=== PATIENT | female | born 1955 | race Caucasian/White ===

== ENCOUNTER 2016-12-24 18:05 | Inpatient (IN) | payer MEDICARE, OTHER ==
[~2016-12-24] VITALS: Ht 171.4 cm; Wt 107.5 kg
[~2016-12-24 18:05] MED LIST: ACET325T51 PO; ALBU8.5H2 INHALATION; ASPI81TA3 PO; CALC500T9 PO; DIPH25CA6 PO; FRSM80T PO; GABA-502 PO; INS7030U SUBQ; MUPI22OI2 NASAL; OMEG500C PO; ONDA-53 PO; SENN-133 PO; TRAZ-118 PO; VANC750P5 IV
--- NOTE | 2016-12-24 18:16 | ED.REPORT ---
HPI-General Illness Date of Service Dec 24, 2016 ED Provider: Arsenio Beach MD 61 year old morbidly obese female with a history of asthma, CHF, diabetes, and ESRD on dialysis, presents to the ER via EMS with two days of acute on chronic shortness of breath, and generalized weakness. Associated symptoms include worsening cough, diaphoresis, chills, and decreased fluid intake. She states that coughing elicits chest pain. Patient denies fever, nausea, vomiting, diarrhea, lower extremity swelling, and recent Prednisone or antibiotic use. She has missed her two most recent dialysis treatments. Her seasonal influenza vaccination is up to date. Nursing Notes Stated Complaint: SOB Nursing Notes Reviewed: Yes ([employer], meds not reconciled) Allergies: Coded Allergies: tramadol (Verified Allergy, Intermediate, Dizziness, falls, 11/02/16) Sulfa (Sulfonamide Antibiotics) (Verified Allergy, Unknown, UNKNOWN, 11/02) morphine (Verified Adverse Reaction, Severe, N/V-tolerates hydromorphone w /o same effect, 11/02/16) Uncoded Allergies: Vitamins (Allergy, Severe, N/V, 05/16/13) Scheduled Aspirin Chew (Aspirin Chew) 81 Mg Chew 81 MG PO DAILY Calcium Carbonate (Tums) 500 Mg Tab.chew 2,000 MG PO DAILYWD Citalopram (Citalopram) 10 Mg Tablet 10 MG PO HS Furosemide (Furosemide) 80 Mg Tab 80 MG PO DAILY Insul NPH Hu Rec/Ins Rg Hu Rec (Novolin 70/30 U100 Insulin Vial) 100 U/1 Ml U 50 UNITS SUBQ BID Levothyroxine (Levothyroxine) 100 Mcg Tablet 100 MCG PO DAILY [place]-3/Dha/Epa/Fish Oil (Fish Oil 1,000 mg Softgel) 1 Each Capsule 2 EACH PO DAILY Trazodone (Trazodone) 100 Mg Tablet 100 MG PO HS Scheduled PRN Acetaminophen (Acetaminophen) 325 Mg Tablet 650 MG PO Q4H PRN PRN For Pain Albuterol HFA (Proair HFA) 8.5 Gm Hfa.aer.ad 2 PUFFS INHALATION Q4H PRN PRN For Shortness of Breath Clobetasol Propionate (Clobetasol Propionate) 118 Ml Shampoo 1 APPLIC TP DAILY PRN PRN scalp Desonide (Desonide Cream) 15 Gm Cream..g. 1 APPLIC TOP BID PRN PRN psoriasis Nystatin (Nystatin) 20 Applic/15 Gm Oint 1 APPLIC TOPICAL BID PRN PRN rash Ondansetron (Ondansetron) 4 Mg Tablet 4 MG PO q6 PRN PRN For Nausea Sennosides (Senna) 8.6 Mg Tablet 8.6 MG PO DAILY PRN PRN For Constipation oxyCODONE-Acetaminophen 7.5-325 mg (oxyCODONE-Acetaminophen 7.5-325 mg) 1 Each Tablet 1 TAB PO BID PRN PRN For Pain General Time Seen by MD: 18:13 Chief Complaint Weakness, Other (Shortness of Breath) Hx Obtained From: Patient Arrived By: Ambulance Sudden in Onset?: No Onset Occurred: 2 days ago Symptom Duration: Constant Associated with: Reports: Cough, Diaphoresis, Denies: Fever, Nausea, Vomiting Pertinent Negative: Pt denies other symptoms Context Related History: Reports Asthma, Reports Diabetes mellitus Past Medical History Past Medical History Notes: Contaminated [place] Consultant: Dr. Denton Admit July 2016 for hemodialysis Past Medical History Arthritis MRSA abscesses bronchitis ESRD , on hemodialysis. Chronic pain with narcotic dependence Hypothyroidism Diabetic nephropathy, and diabetic retinopathy Dyslipidemia diastolic congestive heart failure Reports: Asthma, Diabetes mellitus Reports: Depression, Morbid Obesity, Renal failure Past Surgical History loop recorder placed in left chest right oophorectomy Reports: Appendectomy, Cholecystectomy, Hysterectomy Smoking History Former Smoker Social History Alcohol Use: Denies alcohol use Drug Use: Denies drug use Other Social History: Good social support, Lives with children, Local resident Ambulatory Status Walker Review of Systems Full Review of Systems Constitutional: Reports: Chills, Weakness - generalized, Denies: Fever Respiratory: Reports: Dyspnea on exertion, Non-productive cough, Shortness of breath Cardiovascular: Reports: Chest pain (with coughing) GI: Denies: Abdominal pain, Diarrhea, Nausea, Vomiting Musculoskeletal: Denies: Extremity pain, Extremity swelling Skin: Reports Diaphoresis Complete sys rev & neg: except as marked. Physical Exam Vital Signs Vital Signs Date Time Temp Pulse Resp B/P Pulse Ox O2 Delivery O2 Flow Rate FiO2 12/24/16 21:15 91 22 119/60 92 Nasal Cannula 4 12/24/16 19:55 83 18 142/45 99 12/24/16 18:19 37.9 81 19 130/52 95 Nasal Cannula 3 Initial VS: Reviewed, Vital signs abnormal (O2 Sat 70% for Urgent Care, borderline temperature-but not actually febrile) Head / Eyes: Atraumatic, Normocephalic Neck: Supple, Non-tender, Full range of motion Abdomen / GI: Soft, Non-tender, No guarding, No rebound, No distention Extremities: Vascular intact, Neuro intact, No swelling, No tenderness Skin: Warm, Dry, No cyanosis Neurologic: Alert, Oriented, Nonfocal General/Constitutional: Awake, Alert, No acute distress, Well developed, Well nourished Appearance / Presentation: Positive: Obese Respiratory / Chest: No chest tenderness, No chest wall deformity Wheezing / Retractions: Positive: Wheeze insp/exp diffuse Hacking cough. Profoundly bronchospastic. Cardiovascular: Cap refill not delayed, Peripheral circulation NL Heart tones inaudible. Lower Extremity / Pelvis / MS: Full range of motion, Neurologic intact, Vascular intact Legs are tense, bilaterally. No pitting edema, anasarca or signs of volume overload despite recent missed dialysis appointments. Interpretation & Diagnostics Lab Results Interpretation Result Diagram: 12/24/16193912/24/161939 Test 12/24/16 19:40 White Blood Count 3.4th/mm3 (3.8-10.1) Red Blood Count 2.91mil/mm3 (3.90-5.20) Hemoglobin 8.6g/dL (12.0-15.6) Hematocrit 29.8% (35.0-46.0) Mean Corpuscular Volume 102.4fL (81-100) Mean Corpuscular Hemoglobin 29.6pg (27.0-35.0) Mean Corpuscular Hemoglobin Concent 28.9% (32.0-37.0) Red Cell Distribution Width 16.7% (12.3-15.4) Platelet Count 84bil/L (150-400) Neutrophils (%) (Auto) 63.8% (40-74) Lymphocytes (%) (Auto) 27.6% (14-46) Monocytes (%) (Auto) 6.8% (4-12) Eosinophils (%) (Auto) 1.5% (0-5) Basophils (%) (Auto) 0.3% (0-3) Sodium Level 135mEq/L (134-144) Potassium Level 4.7mEq/L (3.5-5.2) Chloride Level 89mEq/L (97-108) Carbon Dioxide Level 30mmol/L (18-29) Blood Urea Nitrogen 41mg/dL (8-27) Creatinine 12.08mg/dL (0.57-1.00) Estimat Glomerular Filtration Rate 5mL/min (>59) Glucose Level 206mg/dL (60-99) Lactic Acid Level 1.3mmol/L (0.4-2.0) Calcium Level 8.3mg/dL (8.5-10.1) Phosphorus Level 6.6mg/dL (2.5-4.9) Magnesium Level 2.4mg/dL (1.6-2.6) Total Bilirubin 0.4mg/dL (0.0-1.2) Aspartate Amino Transf (AST/SGOT) 12U/L (0-50) Alanine Aminotransferase (ALT/SGPT) 6U/L (0-32) Alkaline Phosphatase 91U/L (25-165) Pro-B-Type Natriuretic Peptide 11390tp/mL (0-287) Total Protein 6.9g/dL (6.4-8.4) Albumin 3.7g/dL (3.4-5.0) Lab Results Interpretation: CBC pancytopenia CMP chronic renal failure (significant elevated creatinine in the setting of multiple missed dialysis sessions), normal potassium, mild hyperglycemia Influenza negative Cultures 2 pending Lactic acid negative ECG Interpretation ECG Interpretation: Sinus rhythm, rate 79 No peaked T waves or other indications of hyperkalemia. T wave inversion anteriorly, unchanged. No QRS widening. QT intervals improved. Compared to ECG dated 11/03/2016 Time: 18:27 Interpreted by: ED physician X-Ray Chest Interpretation Chest Xray Interpretation: IMPRESSION: Bilateral lung interstitial opacities which could represent pulmonary edema secondary to CHF or chronic interstitial lung disease. Please correlate with clinical data. Dictated by: Stephanie Knutson MD, PhD on 12/24/2016 at 19:17 Approved by: Stephanie Knutson MD, PhD on 12/24/2016 at 19:18 View: Portable, 1 view Interpretation / Wet Read by: Interpret - Radiologist Re-Eval/Medical Decision Med Decision/Clinical Course This is a 61-year-old dialysis dependent female has COPD and is on home oxygen for that, presents with some increasing shortness of breath in recent days. She has had a cough, and a mild respiratory infection. She felt poorly, and so she has missed the last 2 dialysis sessions including Thursday's and today's. She went to urgent care, and was noted to have a sat of 70%, and sent to the ED. She has a cough, she does not appear toxic or ill-and is satting in the low 90s on a nasal cannula here. She does have audible bronchospasm in all downing. However she does not appear visibly dyspneic, although she can become so with mild exertion-she got up to use the bathroom and did desat and became dyspneic. She does not have JVD, she is obese, she has some tenseness in the lower extremities, but not pitting edema. Risk for volume overload, but at least on. Physical exam, aside from hypoxia and bronchospasm-not Rales, she does not have overt findings of massive volume overload. EKG is no findings of hyperkalemia. Labs revealed normal potassium. No kasey infiltrate is evident on x-ray, instead it has a pattern of diffuse mild volume overload consistent with some his missed dialysis twice. Flu swab was negative. Blood cultures have been drawn, lactic acid is normal, she does not have a white count. Given she does have a history of COPD and is bronchospastic she received albuterol, Atrovent, steroids. She is mildly improved. She is being admitted continued management, but I do not find that she requires emergent dialysis at this moment, she is again satting in the mid 90s on her nasal K note, she is not visible distress, she is improved with bronchodilator therapy, I think dialysis can be performed in the a.m. Nephrology been consulted and will follow. Case assessment discussed with the hospitalist. Source of Hx: Old records Consultation #1: Referral / Consult Name: Darrell Barone MD Consulted With: Hospitalist Call Returned at: 20:57 Threader: Agrees with eval, Agrees with plan, Accepts admit Consultation #2: Referral / Consult Name: Isiah Ndiaye DO Consulted With: Nephrology Call Returned at: 21:06 Threader: Will see patient Counseled Regarding: Diagnosis, Lab results, Need for admission Discharge & Departure Primary Impression: Shortness of breath Additional Impressions: Acute exacerbation of chronic obstructive pulmonary disease (COPD) Chronic renal failure Chronic kidney disease stage: stage 5 Qualified Code: N18.5 - Chronic kidney disease, stage 5 CHF (congestive heart failure) Congestive heart failure type: unspecified congestive heart failure type Congestive heart failure chronicity: chronic Qualified Code: I50.9 - Heart failure, unspecified Hypoxia Medical non-compliance Disposition: ADMITTED TO HOSPITAL Discharge Condition All VS Reviewed: Yes Condition: Stable Referrals: Tirso Kahn MD (PCP) Scribe Attestation Portions of this note were transcribed by Jd Gee. I, Dr. Beach, personally performed the history, physical exam and medical decision-making; I reviewed and confirmed the accuracy of the information in the transcribed note. Signed by: Abimbola Rocha, 12/24/2016 and 21:07. copies to: Tirso Kahn MD, Matthew F MD Dec 24, 2016 18:16 JD GEE Dec 24, 2016 18:28
[2016-12-24 18:19] VITALS: BP 130/52; PULSE 81; RESP 19; O2SAT 95
[2016-12-24] MEDS ORDERED: Ipratropium 0.02% 0.5 mg/2.5 mL Inhalation Solution NEB ONE (18:50)
[2016-12-24] MEDS ORDERED: MethylprednisoLONE Sodium Succinate 62.5 mg/mL 2 mL Inj IVPUSH ONE (18:50)
[2016-12-24] MEDS ORDERED: Albuterol 2.5 mg/3 mL Inhalation Solution NEB ONE (18:50)
--- NOTE | 2016-12-24 19:20 | DRSVH ---
PROCEDURE: X-RAY CHEST ONE VIEW, PORTABLE ([id number]) INDICATIONS: SHORTNESS OF BREATH TECHNIQUE: One view of the chest was acquired. COMPARISON: [facility], CR, XR CHEST 2VW, 11/06/2016, 7:54. FINDINGS: Surgical changes and devices: Endovascular stent projects over the left shoulder. Lungs and pleura: No pleural effusions or pneumothorax. Bilateral lung interstitial opacities are st able compared to prior examination may represent chronic lung disease or pulmonary edema. Mediastinum: Mediastinal contours appear normal. Heart size is normal. Bones and chest wall: No suspicious bony lesions. Overlying soft tissues appear unremarkable. IMPRESSION: Bilateral lung interstitial opacities which could represent pulmonary edema secondary to CHF or chronic interstitial lung disease. Please correlate with clinical data. Dictated by: Stephanie Knutson MD, PhD on 12/24/2016 at 19:17 Approved by: Stephanie Knutson MD, PhD on 12/24/2016 at 19:18
[2016-12-24 19:49] LABS: BASOPHILS % (AUTO) 0.3 % (0-3); EOSINOPHILS % (AUTO) 1.5 % (0-5); Mean Corpuscular Volume 102.4 fL (81-100)
[2016-12-24 19:52] LABS: MONOCYTES % (AUTO) 6.8 % (4-12); Mean Corpuscular Hemoglobin 29.6 pg (27.0-35.0); NEUTROPHILS % (AUTO) 63.8 % (40-74); Platelet Count 84 bil/L (150-400)
[2016-12-24 19:55] VITALS: BP 142/45; PULSE 83; RESP 18; O2SAT 99
[2016-12-24 20:11] LABS: Magnesium 2.4 mg/dL (1.6-2.6); Phosphorus 6.6 mg/dL (2.5-4.9)
[2016-12-24] MEDS ORDERED: Ondansetron 2 mg/mL 2 mL Inj IVPUSH PRN (21:05)
[2016-12-24] MEDS ORDERED: Polyethylene Glycol (PEG) 17 Gm Powder PO PRN (21:05)
[2016-12-24] MEDS ORDERED: Alum-Mag Hydrox-Simeth 30 mL Suspension PO PRN (21:05)
[2016-12-24] MEDS ORDERED: Glucose 40% Oral Gel 15 Gm Tube PO PRN (21:10)
[2016-12-24 21:15] VITALS: BP 119/60; PULSE 91; RESP 22; O2SAT 92
[2016-12-24] MEDS ORDERED: CLOB118S3 TP (21:20)
[2016-12-24] MEDS ORDERED: DESO15CR25 TOP (21:20)
[2016-12-24] MEDS ORDERED: OMEG-38 PO (21:20)
[2016-12-24] MEDS ORDERED: CITA10TA9 PO (21:20)
[2016-12-24] MEDS ORDERED: LEVO100T6 PO (21:22)
[2016-12-24] MEDS ORDERED: OXYC-465 PO (21:22)
[2016-12-24] MEDS ORDERED: MYCO TOPICAL (21:22)
[2016-12-24] MEDS ORDERED: oxyCODONE-Acetamin 5-325 mg Tablet PO ONE (21:50)
[2016-12-24] MEDS ORDERED: _oxyCODONE/APAP 5-325 mg Tablet PO PRN (21:50)
[2016-12-24 21:58] VITALS: BP 119/60; PULSE 91; RESP 22; O2SAT 92
[2016-12-24 22:03] VITALS: BP 158/65; PULSE 93; RESP 20; O2SAT 94
[2016-12-24 23:11] VITALS: BP 121/53; PULSE 87; RESP 18; O2SAT 94
[2016-12-24] MEDS: Insulin LISPRO 300 Unit/3 mL Inj SUBQ SCH (23:25)
[2016-12-24] MEDS: Heparin 5,000 Unit/mL Inj SUBQ SCH (23:30)
--- NOTE | 2016-12-24 23:34 | PCM.HPMED ---
Subjective Date of Service Dec 24, 2016 Primary Provider: Admitting Physician: Primary Care Physician: Triso Kahn MD Attending Physician: Chief Complaint: Acute shortness of breathe History of Present Illness: Bao Celestin is a 61 year old female with ESRD on hemodialysis, DM, and asthma who presents to [facility] emergency department complaining of shortness of breath Pt was shopping when she suddenly became short of breath and lightheaded, this episode lasted for 5 minutes and resolved with a few minutes of deep inspiration. Aggravating factors include exertion and lying down. Associated symptoms includes lightheadedness, fatigue and a mild headache. She also reports nonproductive cough (whitish) and wheezing. Denies cold symptoms or sick contacts. Pt states she was recently placed on oxygen at home a few weeks ago. She has a history of Asthma and uses a inhaler at home. She denies fever, chills, cough, nausea, vomiting, chest pain. Patient missed her dialysis on Thursday and today due to her not feeling well Case discussed with Dr Beach, he spoke to the [place] Man. Symptoms improved with Solu-Medrol IV and neb treatments. Fortunately her labs did not indicate need for emergent dialysis tonight. Review of Systems: Pertinent positives as noted in HPI. All other systems were reviewed and are negative Allergies Coded Allergies: tramadol (Verified Allergy, Intermediate, Dizziness, falls, 11/02/16) Sulfa (Sulfonamide Antibiotics) (Verified Allergy, Unknown, UNKNOWN, 11/02) morphine (Verified Adverse Reaction, Severe, N/V-tolerates hydromorphone w /o same effect, 11/02/16) Uncoded Allergies: Vitamins (Allergy, Severe, N/V, 05/16/13) Home Medications From [facility] but not yet confirmed Bao Celestin. [id number] 1955 12/24/2016 05:25 PM 11/27 Aleve 220 mg capsule Asmanex HFA 100 mcg/actuation aerosol inhaler inhale 2 puff by inhalation route 2 times every day in the morning and evening Aspirin 81 Mg Tablet 1 tablet by mouth daily citalopram 10 mg tablet take 1 tablet by oral route every night clobetasol 0.05 % shampoo apply by topical route every day a thin layer to dry scalp Leave in place 15 min. then lather and rinse. desonide 0.05 % topical cream apply 2 times every day to affected areas for 2 wks then once a day for a week then 2-3 times a week as needed Fish Oil 1,000 mg capsule furosemide 80 mg tablet TAKE ONE TABLET BY MOUTH EVERY DAY lancets use to test blood glucose levels 2 times daily for diabetes. levothyroxine 100 mcg tablet TAKE ONE TABLET BY MOUTH DAILY FOR THYROID. NEED LABS. Novolin 70/30 100 unit/mL subcutaneous suspension inject by subcutaneous route 2x daily as per insulin protocol inject 50 units in the morning and 50 units at dinner nystatin 100,000 unit/gram topical ointment apply by topical route 2 times every day to the affected area(s) oxycodone-acetaminophen 7.5 mg-325 mg tablet take 1 tablet by oral route every 12 hours as needed ProAir HFA 90 mcg/actuation aerosol inhaler inhale 2 puff by inhalation route every 4 - 6 hours as needed Renvela 800 mg tablet take 1 tablet by oral route 3 times every day with food Senna 1 tablet by mouth 2 times daily trazodone 100 mg tablet TAKE ONE TABLET BY MOUTH EVERY NIGHT AT BEDTIME FOR SLEEP / MOOD TYLENOL take 1 tablet by ORAL route every 4 hours as needed Zofran ODT 4 mg disintegrating tablet take 1 Tablet by oral route every 8 hours for [address] on top of the tongue where it will dissolve, then swallow PMH Arthritis MRSA abscesses Bronchitis Stage V chronic kidney disease, on hemodialysis. Chronic pain with narcotic dependence Hypothyroidism Diabetes with nephropathy and retinopathy Dyslipidemia Asthma Chronic respiratory failure on home oxygen Depression Morbid Obesity . Surgical History Loop recorder placed in left chest Right oophorectomy Appendectomy Cholecystectomy Hysterectomy Family History Mother: CHF Father: CHF, pacemaker 2 brothers: Diabetes Sister: Afib Social History Hx Alcohol Use: No Hx Substance Use: No Hx Tobacco Use: Yes (quit 07/25/2009) Smoking Status: Former Smoker Living Arrangement: Alone Exam Vital Signs Vital Sign - Last Date Time Temp Pulse Resp B/P Pulse Ox O2 Delivery O2 Flow Rate FiO2 12/24/16 19:55 83 18 142/45 99 12/24/16 18:19 37.9 Nasal Cannula 3 Exam General: Alert, Oriented X3, Cooperative, No acute Distress Eyes: PERRLA, Scleral Anicteric Mouth: Mouth Normal, Mucous Membranes Moist/[place] Neck: Supple, no Thyromegaly, trachea central. Chest & Lungs: Clear to auscultation & percussion, No adventitious breath sounds, no crackles, no wheeze Cardiovascular: Normal S1, Normal S2, No Murmurs/Rubs/Gallops, Regular Rate/ Rhythm, Murmur, Other (No JVD, no peripheral edema) Pulses: Radial (present and equal), Dorsalis Pedi (present and equal) Abdomen: Soft, Non-tender, Non-distended, Normoactive bowel tones. Musculoskeletal: Unremarkable. Normal range of motion, no swollen or erythematous joints Extremities: No edema, no cyanosis, no clubbing. Skin: No rashes. Warm and dry, no erythematous areas Neurological: Grossly neurologically intact, has generalized weakness, Normal Speech, Sensation Intact Lymphatic: Lymph nodes Cervical and Axillary not palpable. Lab and Diagnostics Labs Laboratory Tests Test 12/24/16 19:40 White Blood Count 3.4th/mm3 (3.8-10.1) Red Blood Count 2.91mil/mm3 (3.90-5.20) Hemoglobin 8.6g/dL (12.0-15.6) Hematocrit 29.8% (35.0-46.0) Mean Corpuscular Volume 102.4fL (81-100) Mean Corpuscular Hemoglobin 29.6pg (27.0-35.0) Mean Corpuscular Hemoglobin Concent 28.9% (32.0-37.0) Red Cell Distribution Width 16.7% (12.3-15.4) Platelet Count 84bil/L (150-400) Neutrophils (%) (Auto) 63.8% (40-74) Lymphocytes (%) (Auto) 27.6% (14-46) Monocytes (%) (Auto) 6.8% (4-12) Eosinophils (%) (Auto) 1.5% (0-5) Basophils (%) (Auto) 0.3% (0-3) Sodium Level 135mEq/L (134-144) Potassium Level 4.7mEq/L (3.5-5.2) Chloride Level 89mEq/L (97-108) Carbon Dioxide Level 30mmol/L (18-29) Blood Urea Nitrogen 41mg/dL (8-27) Creatinine 12.08mg/dL (0.57-1.00) Estimat Glomerular Filtration Rate 5mL/min (>59) Glucose Level 206mg/dL (60-99) Lactic Acid Level 1.3mmol/L (0.4-2.0) Calcium Level 8.3mg/dL (8.5-10.1) Phosphorus Level 6.6mg/dL (2.5-4.9) Magnesium Level 2.4mg/dL (1.6-2.6) Total Bilirubin 0.4mg/dL (0.0-1.2) Aspartate Amino Transf (AST/SGOT) 12U/L (0-50) Alanine Aminotransferase (ALT/SGPT) 6U/L (0-32) Alkaline Phosphatase 91U/L (25-165) Total Protein 6.9g/dL (6.4-8.4) Albumin 3.7g/dL (3.4-5.0) Microbiology 12/24/16 Blood Culture, Received Pending 12/24/16 Influenza Screen - Final, Complete Result Diagram: 12/24/16193912/24/161939 X-Rays, CTs and MRIs X-RAY CHEST ONE VIEW, PORTABLE 12/24/16 IMPRESSION: Bilateral lung interstitial opacities which could represent pulmonary edema secondary to CHF or chronic interstitial lung disease. Please correlate with clinical data. Dictated by: Stephanie Knutson MD, PhD on 12/24/2016 at 19:17 Approved by: Stephanie Knutson MD, PhD on 12/24/2016 at 19:18 Assessment & Plan Bao Celestin is a 61 year old female with ESRD on hemodialysis, DM, and asthma who presents to [facility] emergency department complaining of shortness of breath 1. Acute Dyspnea. Present on admission Likely due to Pulmonary congestion from missed dialysis sessions. Review of records shows patient has Pulmonary Hypertension but no left sided heart failure with normal ejection fraction. Differential diagnosis includes Pulmonary embolism, Unstable Angina. Influenza is less likely with absent of typical symptoms much as muscle aches and fever, coupled with negative Influenza swab - oxygen supplementation (not requiring more than baseline) - treat underlying cause, dialysis tomorrow - trending troponin - giving 1 time dose of Lasix 40 mg IV, takes 80 mg po daily at home - consider treatment for Pulmonary hypertension 2. Asthma with chronic respiratory failure.. - continue bronchodilators with DuoNeb - I am not convinced patient has a exacerbation therefore no further steroids will be ordered - no antibiotics indicated 3. End stage Renal disease with osteodystrophy, on hemo dialysis. History of non compliance with dialysis sessions - continuing Renvela - Nephrology consulted - Will likely have dialysis schedule tomorrow. - social work consult to identifies issues or barrier to compliance with dialysis 4. Diabetes mellitus type 2, insulin using. - HbA1c ordered - determine outpatient insulin regimen and resume - Lispro medium dose correctional scale - Continue home gabapentin - Renal diet 5. Chronic anemia due to chronic disease - no bleeding - continue Procrit as per Nephrology 6. Depression, chronic Presumed stable with no suicidal ideation - continue Citalopram and Trazodone 7. Hypothyroidism, Chronic continue Synthroid 100 mcg daily - Acetaminophen as needed for mild pain/fever/headache - Bowel regimen as needed - Antiemetic as needed Patient admitted under inpatient status with expected length of stay > 2 midnights for severity of present symptoms, complexities of treatment plan and risk for adverse event . Resuscitation Status: CPR: Attempt Resuscitation Darrell Barone MD Dec 24, 2016 21:13 Darrell Barone MD Dec 24, 2016 21:13
[2016-12-25] VITALS (9 sets, daily range): BP systolic 99–131; BP diastolic 40–87; PULSE 60–93; RESP 14–18; O2SAT 93–99
[2016-12-25] MEDS ORDERED: Albuterol-Ipratropium 3 mL Inhalation Solution NEB PRN (00:15)
[2016-12-25] MEDS ORDERED: Furosemide 10 mg/mL 4 mL Inj IVPUSH ONE (00:25)
--- NOTE | 2016-12-25 06:05 | NUR ---
Admit Admitted to 1028 via stretcher from ED. Able to ambulate on arrival. SpO2 low-mid 90's 4L NC. Reports PICKETT but denies SOB @ rest. Tele initiated and SR without c/o CP. Generalized edema throughout. Tolerating PO fluids without any noted swallowing issues or nausea. HD patient with LUE fistula. Reports last BM on 12/23 and states she voids a couple of times per week. Denies pain or discomfort after being medicated in ED prior to arrival. Open area noted on bottom of right foot. Area cleansed and band aid dressing applied. Wound care consult to evaluate. Personal belongings at bedside per patient request. Oriented to call light use with return demonstration.
[2016-12-25] MEDS: Heparin 5,000 Unit/mL Inj SUBQ SCH ×2 (08:30→18:52)
[2016-12-25] MEDS: Insulin LISPRO 300 Unit/3 mL Inj SUBQ SCH ×4 (09:24→21:52)
--- NOTE | 2016-12-25 09:46 | NUR ---
pt arrived to [facility] for DIALYSIS at ~0935 via bed alert/oriented, cooperative tele education technician informed of temp room location web marketing intern at bedside Addendum: 12/25/16 at 1014 by GEORGE EWING RN Report called to Laurel ISRAEL BS at transfer 451, 8units lispro admin. Provider notified and requested blood sugars to be checked in 2 hrs and again at 4 hrs.
--- NOTE | 2016-12-25 14:15 | NUR ---
Social Work Initial Assessment Attempt: SW attempted to meet with patient at bedside to discuss discharge plan. Patient currently off unit in HD at this time. Patient is a 61 year old female admitted on 12/24/16 for SOB and heart failure. Patient payer as Medicare and [facility]. Patient PCP as MD Kahn. Patient resides in [place] with family and is independent at baseline. Per previous admit notes patient uses a cane and occasionally a 4WW for ambulation. Pt was SNF history at [facility]. Pt goes to dialysis at [facility], W, F. SW to follow up with needs upon patient's return back to unit. SW to follow. Plan: Anticipated home via POV pending initial assessment with patient. SW to follow Brianne BADILLO
--- NOTE | 2016-12-25 14:15 | NUR ---
Dialysis note: 4 hrs tx. 3000 ml net UF. Left upper arm fistula. Pls see DTR for VS details. Qb 400. Heparin given. O2 @ 3L via NC on. Tolerated tx, slept at intervals. Fistula needle sites clotted w/in 10 min. Report given to Laurel Hill RN. Stable at time of transfer. Addendum: 12/25/16 at 1606 by GEORGE EWING RN Returned to floor with 3L O2. A&O. Provider notified of return to room. Plan discussed and pt has no further questions at this time.
--- NOTE | 2016-12-25 18:42 | CONS ---
[address] [address] CONSULTATION REPORT PATIENT: MARIO ALBERTO GIBSON I : 1955 MR#: [id number] ADMIT: 12/24/2016 JOB ID: [id number] DATE OF SERVICE: 12/25/2016 HISTORY: The patient is a 61-year-old white female who has a history of end-stage renal disease who was admitted to [facility] for pneumonia and [id number] congestive heart failure. Renal consultation is being sought for further evaluation and management of her end-stage renal disease. She has a history of end-stage renal disease dating back approximately six years. The etiology of her renal failure is due to longstanding diabetes and hypertension. She normally dialyzes Thursday, Thursday, and Thursday. She states that over the weekend she began to have symptoms of upper respiratory tract infection including nasal congestion with rhinorrhea, cough productive of scant amounts of white sputum, intermittent wheezing, fatigue, and general malaise. She states that she missed her dialysis on Thursday and yesterday due to her feeling ill. She has a history of asthma and states that she has been using her inhaler more for some symptomatic relief. I was contacted late last night by the emergency department and as this appeared to be a nonemergent situation and it was after 10 o'clock, we elected to admit her and to treat her in the morning 1st thing. PAST MEDICAL HISTORY: Significant for end-stage renal disease which is dialysis-dependent for which she dialyzes three days a week. She is being followed by an outside interventional pain physician. There is also a history of insulin-requiring diabetes mellitus which has been complicated by diabetic retinopathy, neuropathy, and diabetic renal disease. There is a history of hypertension, COPD/asthma, chronic pain syndrome with narcotic dependence, hypothyroidism, hyperlipidemia, morbid obesity, and depression. PAST SURGICAL HISTORY: Significant for a right oophorectomy, appendectomy, cholecystectomy, hysterectomy, a loop recorder in the left chest, and an AV fistula. ALLERGIES: She is allergic to: 1. SULFA. 2. MORPHINE. 3. TRAMADOL. 4. VITAMINS. SOCIAL HISTORY: She has an extensive history of tobacco use and quit approximately eight years ago. She denies use of alcohol or illicit drugs. She is somewhat sedentary in her activities of daily living. FAMILY HISTORY: Noncontributory. CURRENT MEDICATIONS: At time of admission included: 1. Aleve. 2. Asmanex. 3. Aspirin. 4. Citalopram. 5. Clobetasol shampoo. 6. Fish oil. 7. Furosemide 80 mg. 8. Levothyroxine. 9. Insulin. 10. Oxycodone. 11. ProAir. 12. Renvela. 13. Senna. 14. Trazodone. 15. Zofran. REVIEW OF SYSTEMS: Is detailed above. Otherwise, she denies any constipation, diarrhea, or rash. PHYSICAL EXAMINATION: Revealed an obese, 61-year-old, white female who looked older than her stated age. Her vital signs showed a temperature of 36.8, blood pressure is 101/61, a pulse rate of 63. HEENT examination: Remarkable for pale sclerae. Neck is supple without adenopathy, thyromegaly, or jugular venous distention. Lungs showed bibasilar rales approximately [address] Heart was regular and rhythmical with a soft systolic murmur. There was no S3 or S4 noted. Abdomen was soft, without any tenderness, rebound, guarding, masses, or hepatosplenomegaly. Extremities did not show any evidence of any clubbing, cyanosis, or edema. Skin turgor was good and there was no evidence of any rashes. LABORATORY EXAMINATION: Her hemoglobin was 8.6, hematocrit 29.8, MCV was 104. Platelet count was low at 84,000. Her sodium at time of admission was 135, potassium 4.7, chloride 89, CO2 of 30, BUN and creatinine 41 and 12.1, glucose was 206. IMPRESSION: 1. End-stage renal disease-dialysis dependent. 2. Hypertension with hypertensive heart disease and hypertensive nephrosclerosis with congestive heart failure/pulmonary edema. 3. Multifactorial anemia. RECOMMENDATION: The patient is to be dialyzed today for 4 hours on a Revaclear Max dialyzer and a 3 potassium bath. We will attempt to take 2-4 kg of fluid off as tolerated. Most likely, we will be making a 2nd treatment tomorrow. Once again, I would like to thank you for allowing me to participate in the care of this most pleasant and interesting patient. I will be following her closely with you while in the hospital.
[2016-12-25] MEDS ORDERED: Albuterol 2.5 mg/3 mL Inhalation Solution NEB PRN (20:00)
[2016-12-25] MEDS ORDERED: [UNRECOGNIZED DRUG - OTHER] TOPICAL PRN (20:15)
[2016-12-25] MEDS ORDERED: GABA600T2 PO (20:57)
[2016-12-26] VITALS (10 sets, daily range): BP systolic 107–144; BP diastolic 42–74; PULSE 63–77; RESP 16–20; O2SAT 92–98
[2016-12-26] MEDS: Heparin 5,000 Unit/mL Inj SUBQ SCH ×3 (00:31→22:01)
[2016-12-26] MEDS: oxyCODONE-Acetamin 5-325 mg Tablet PO PRN ×2 (00:33→20:33)
--- NOTE | 2016-12-26 01:16 | PCM.PNMED ---
Subjective Date of Service Dec 26, 2016 Subjective Patient is feeling better and breathing better after over 3 L of fluid were taken off during hemodialysis today. She is resting comfortably in bed and has no new complaints. Exam Vital Signs Vital Sign - Last Date Time Temp Pulse Resp B/P Pulse Ox O2 Delivery O2 Flow Rate FiO2 12/26/16 00:02 36.8 77 18 119/42 94 Nasal Cannula 2.00 Intake and Output 12/25/16 12/25/16 12/26/16 Cumulative From/Thru 15:00 23:00 07:00 12/24/16 18:19 - 12/26/16 00:33 Intake Total 300 ml 600 ml Output Total 3000 ml 0 ml 3000 ml Balance -3000 ml 300 ml -2400 ml Intake Oral 300 ml 600 ml IV Total 0 ml Output Urine Total 0 ml 0 ml Ultrafiltrate 3000 ml 3000 ml # Bowel Movements 1 1 Exam General: Patient is in no apparent distress laying supine in bed after hemodialysis. HEENT: Head is atraumatic and normocephalic. Eyes: Pupils are equally round and reactive to light and accommodation. Extraocular muscles are intact. Sclera are white, anicteric. Subconjunctival mucosa is pink. Ears and nose are unremarkable. Oropharynx: There is no mucosal lesions, there is no thrush, there is no pharyngitis. Neck: Is supple, there are no nodes, or masses or tenderness. Chest: Is clear to auscultation and percussion. There are no rales, rhonchi, wheezes or rubs. Heart: Rate, rhythm is regular. There is no murmur, rub or gallop. Abdomen: Good bowel sounds are present. Abdomen is obese, soft, nontender, no organomegaly or masses were appreciated. Extremities: Are symmetrical and well perfused. There is no edema, there is no cellulitis, no rash. Neurologic: There are no focal neurological deficits. Cranial nerves II through XII are intact. There are no sensory or motor deficits. Psychiatric: Patients mood is calm and shows no sign of agitation. Genital: Deferred Rectal: Deferred Lab and Diagnostics Result Diagram: 12/24/16193912/24/161939 X-Rays, CTs and MRIs X-RAY CHEST ONE VIEW, PORTABLE 12/24/16 IMPRESSION: Bilateral lung interstitial opacities which could represent pulmonary edema secondary to CHF or chronic interstitial lung disease. Please correlate with clinical data. Dictated by: Stephanie Knutson MD, PhD on 12/24/2016 at 19:17 Approved by: Stephanie Knutson MD, PhD on 12/24/2016 at 19:18 Assessment & Plan Bao Celestin is a 61 year old female with ESRD on hemodialysis, DM, and asthma who presents to [facility] emergency department complaining of shortness of breath 1. Acute Dyspnea. Present on admission Likely due to Pulmonary congestion from missed dialysis sessions. Patient states that she missed a couple of rounds of hemodialysis due to upper respiratory illness that she had. Review of records shows patient has Pulmonary Hypertension but no left sided heart failure with normal ejection fraction. Differential diagnosis includes Pulmonary embolism, Unstable Angina. Influenza is less likely with absent of typical symptoms much as muscle aches and fever, coupled with negative Influenza swab - oxygen supplementation (not requiring more than baseline) - treat underlying cause, dialysis tomorrow - trending troponin - giving 1 time dose of Lasix 40 mg IV, takes 80 mg po daily at home - consider treatment for Pulmonary hypertension 2. Asthma with chronic respiratory failure.. - continue bronchodilators with DuoNeb - I am not convinced patient has a exacerbation therefore no further steroids will be ordered - no antibiotics indicated 3. End stage Renal disease with osteodystrophy, on hemo dialysis. History of non compliance with dialysis sessions - continuing Renvela - Nephrology consulted - Will likely have dialysis schedule tomorrow. - social work consult to identifies issues or barrier to compliance with dialysis 4. Diabetes mellitus type 2, insulin using. - HbA1c ordered - determine outpatient insulin regimen and resume - Lispro medium dose correctional scale - Continue home gabapentin - Renal diet 5. Chronic anemia due to chronic disease - no bleeding - continue Procrit as per Nephrology 6. Depression, chronic Presumed stable with no suicidal ideation - continue Citalopram and Trazodone 7. Hypothyroidism, Chronic continue Synthroid 100 mcg daily - Acetaminophen as needed for mild pain/fever/headache - Bowel regimen as needed - Antiemetic as needed Disposition: Patient is to have hemodialysis again tomorrow. Dr. Greene will follow in a.m. . Pain Evaluation: Adequate Pain Control VTE Prophylaxis: Sub-Q Heparin (Unfractionated) Resuscitation Status: CPR: Attempt Resuscitation Vladimir Ramirez MD Dec 26, 2016 01:16
--- NOTE | 2016-12-26 06:11 | NUR ---
Pain c/o generalized pain x1 this shift. Prn Percocet with 1/2 tab of oxycodone administered and effective with no further complaints noted.
[2016-12-26 07:29] LABS: BASOPHILS % (AUTO) 0.4 % (0-3); EOSINOPHILS % (AUTO) 1.1 % (0-5); MONOCYTES % (AUTO) 6.6 % (4-12); NEUTROPHILS % (AUTO) 66.9 % (40-74); Platelet Count 78 bil/L (150-400)
[2016-12-26] MEDS: Insulin LISPRO 300 Unit/3 mL Inj SUBQ SCH ×4 (08:22→22:01)
[2016-12-26] MEDS ORDERED: EPA PO SCH (08:30)
[2016-12-26] MEDS ORDERED: FISH OIL PO SCH (08:30)
[2016-12-26] MEDS ORDERED: DHA PO SCH (08:30)
[2016-12-26] MEDS ORDERED: OMEGA PO SCH (08:30)
--- NOTE | 2016-12-26 08:30 | NUR ---
Dialysis Pt leave via bed to dialysis. Report given to Nettie. Transferred by LC LAGUERRE.
[2016-12-26 08:37] LABS: Magnesium 2.3 mg/dL (1.6-2.6); Phosphorus 6.3 mg/dL (2.5-4.9)
--- NOTE | 2016-12-26 09:04 | NUR ---
Pt arrived to [facility]; Pt arrived to [facility] for dialysis treatment. Report obtained from Judy Coon RN. Tele monitor aware of transfer. Pt appears stable at this time. Addendum: 12/26/16 at 1246 by MARTHA ESCOBAR RN Completed dialysis treatment without incident. P Addendum: 12/26/16 at 1247 by MARTHA ESCOBAR RN Report given to primary nurse Judy Coon RN. lighting technician aware of transfer.
--- NOTE | 2016-12-26 12:11 | PCM.PNMED ---
Subjective Date of Service Dec 26, 2016 Subjective Patient states she feels a bit better but continues to have a nonproductive cough. She is tolerating her diet and denies any fever or chills. Exam Vital Signs Vital Sign - Last Date Time Temp Pulse Resp B/P Pulse Ox O2 Delivery O2 Flow Rate FiO2 12/26/16 08:47 68 12/26/16 05:05 36.5 16 107/58 97 Nasal Cannula 2.00 Intake and Output 12/25/16 12/25/16 12/26/16 Cumulative From/Thru 15:00 23:00 07:00 12/24/16 18:19 - 12/26/16 05:45 Intake Total 300 ml 350 ml 950 ml Output Total 3000 ml 0 ml 0 ml 3000 ml Balance -3000 ml 300 ml 350 ml -2050 ml Intake Oral 300 ml 350 ml 950 ml IV Total 0 ml 0 ml Output Urine Total 0 ml 0 ml 0 ml Ultrafiltrate 3000 ml 3000 ml # Bowel Movements 1 0 1 Exam Patient was seen in dialysis. Neck is supple without adenopathy thyromegaly or jugular venous distention. Lungs were clear to auscultation with exception of some scattered rhonchi. Heart was regular with soft systolic murmur. Abdomen soft groin tenderness rebound guarding masses or hepatosplenomegaly. Extremities 20 evidence of any clubbing, cyanosis, or edema. Lab and Diagnostics Result Diagram: 12/26/16 0642 12/26/16 0642 X-Rays, CTs and MRIs X-RAY CHEST ONE VIEW, PORTABLE 12/24/16 IMPRESSION: Bilateral lung interstitial opacities which could represent pulmonary edema secondary to CHF or chronic interstitial lung disease. Please correlate with clinical data. Dictated by: Stephanie Knutson MD, PhD on 12/24/2016 at 19:17 Approved by: Stephanie Knutson MD, PhD on 12/24/2016 at 19:18 Assessment & Plan Depression #1 end-stage renal disease dialysis dependent #2 hypertension with hypertensive heart disease hypertensive nephrosclerosis #3 diabetic nephropathy Recommendations #1 the patient dialyzed today for 3-1/2 hours on a revaclear max dialyzer, 3 potassium bath, and a loading dose of 3000 of heparin and 500 in our. We will also try to take 2-3 L of fluid off. VTE Prophylaxis: Sub-Q Heparin (Unfractionated) Resuscitation Status: CPR: Attempt Resuscitation Ndiaye,Isiah D DO Dec 26, 2016 12:10
--- NOTE | 2016-12-26 12:55 | NUR ---
Dialysis note: 3 1/2 hrs tx. 3000 ml net UF. Left upper arm fistula. Pls see DTR for VS details. Qb 400. Heparin given. O2 @ 2L via NC on. Tolerated tx, slept at intervals. Fistula needle sites clotted w/in 10 min. Report given to Andria Lopez RN. Stable at time of transfer.
--- NOTE | 2016-12-26 14:44 | PCM.PNMED ---
Subjective Date of Service Dec 26, 2016 Subjective Says still some SOB and doesn't feel she's able to go home today. Is on home O2 at 2 liters and has inhaler at home. She's not sure how much fluid they took off today in dialysis. Exam Vital Signs Vital Sign - Last Date Time Temp Pulse Resp B/P Pulse Ox O2 Delivery O2 Flow Rate FiO2 12/26/16 13:07 36.5 64 16 117/49 97 Nasal Cannula 2.00 Intake and Output 12/25/16 12/25/16 12/26/16 Cumulative From/Thru 15:00 23:00 07:00 12/24/16 18:19 - 12/26/16 05:45 Intake Total 300 ml 350 ml 950 ml Output Total 3000 ml 0 ml 0 ml 3000 ml Balance -3000 ml 300 ml 350 ml -2050 ml Intake Oral 300 ml 350 ml 950 ml IV Total 0 ml 0 ml Output Urine Total 0 ml 0 ml 0 ml Ultrafiltrate 3000 ml 3000 ml # Bowel Movements 1 0 1 Exam alert and oriented, talkative (mostly with complaints about her son), NAD heart: reg lungs: low pitched exp wheeze throughout with mild-mod prolonged expir abd: soft, NT extrem: no pedal edema IVs and Medications Medications Reviewed: Medications were reviewed in detail Lab and Diagnostics Result Diagram: 12/26/16 0642 12/26/16 0642 X-Rays, CTs and MRIs X-RAY CHEST ONE VIEW, PORTABLE 12/24/16 IMPRESSION: Bilateral lung interstitial opacities which could represent pulmonary edema secondary to CHF or chronic interstitial lung disease. Please correlate with clinical data. Dictated by: Stephanie Knutson MD, PhD on 12/24/2016 at 19:17 Approved by: Stephanie Knutson MD, PhD on 12/24/2016 at 19:18 Assessment & Plan Bao Celestin is a 61 year old female with ESRD on hemodialysis, DM, and asthma who presents to [facility] emergency department complaining of shortness of breath 1. Acute Dyspnea. Present on admission Likely due to volume overload from missed dialysis sessions. Patient states that she missed a couple of rounds of hemodialysis due to upper respiratory illness that she had. Review of records shows patient has Pulmonary Hypertension but no left sided heart failure with normal ejection fraction. Differential diagnosis includes Pulmonary embolism, Unstable Angina. Influenza is less likely with absent of typical symptoms much as muscle aches and fever, coupled with negative Influenza swab - oxygen supplementation (not requiring more than baseline) - had dialysis today - mildly elevated troponin stable, prob due to CRF - continue 80 mg po daily as at home 2. Asthma with chronic respiratory failure, may have some acute exacerbation - will changed DuoNeb to QID scheduled - hold off on steroids for now (enriqueta with DM) - no antibiotics indicated 3. End stage Renal disease with osteodystrophy, on hemo dialysis. History of non compliance with dialysis sessions - continuing Renvela - Nephrology consulted & dialyzed today - social work consult to identifies issues or barrier to compliance with dialysis 4. Diabetes mellitus type 2, insulin using. - HbA1c ordered - determine outpatient insulin regimen and resume - Lispro medium dose correctional scale - Continue home gabapentin - Renal diet 5. Chronic anemia due to chronic disease - no bleeding - continue Procrit as per Nephrology 6. Depression, chronic Presumed stable with no suicidal ideation - continue Citalopram and Trazodone 7. Hypothyroidism, Chronic continue Synthroid 100 mcg daily - Acetaminophen as needed for mild pain/fever/headache - Bowel regimen as needed - Antiemetic as needed Disposition: Hopefully home tomorrow . Pain Evaluation: Adequate Pain Control VTE Prophylaxis: Sub-Q Heparin (Unfractionated) Resuscitation Status: CPR: Attempt Resuscitation VTE Prophylaxis: Sub-Q Heparin (Unfractionated) Resuscitation Status: CPR: Attempt Resuscitation Mira Greene MD Dec 26, 2016 14:44 Resuscitation Status: CPR: Attempt Resuscitation Mira Greene MD Dec 26, 2016 14:44
[2016-12-26] MEDS: Albuterol-Ipratropium 3 mL Inhalation Solution NEB SCH ×2 (16:20→19:32)
[2016-12-27 00:54] VITALS: BP 103/52; PULSE 65; RESP 20; O2SAT 100
--- NOTE | 2016-12-27 04:48 | NUR ---
Headache Patient complaining of 6/10 headache pain at beginning of shift. Percocet 5/325 mg & Oxycodone 2.5mg PO given with effective results. Pain at comfortable level at reassessment. No further c/o breakthrough pain.
[2016-12-27 05:50] VITALS: BP 144/66; PULSE 66; RESP 18; O2SAT 99
[2016-12-27 05:58] VITALS: PULSE 73
[2016-12-27] MEDS: Insulin LISPRO 300 Unit/3 mL Inj SUBQ SCH (07:58)
[2016-12-27] MEDS: Heparin 5,000 Unit/mL Inj SUBQ SCH (07:59)
--- NOTE | 2016-12-27 08:56 | PCM.DIMED ---
Discharge Instructions Date of Service Dec 27, 2016 Dates of Hospitalization Dec 24, 2016 at 21:37 Diet Renal Diet Activity No restrictions Call your provider Shortness of breath Patient Instructions Follow-up plan Important to keep your dialysis appointments Follow-up with PCP in: 1 week Mira Greene MD Dec 27, 2016 08:56
--- NOTE | 2016-12-27 09:04 | PCM.DC.MED ---
Discharge Summary Date of Service Dec 27, 2016 Dates of Hospitalization Date of Hospital Admission Dec 24, 2016 at 21:37 Date of Discharge: Dec 27, 2016 (12:00) Providers: Admitting Physician: Darrell Barone MD Primary Care Physician: Tirso Kahn MD Attending Physician: Darrell Barone MD Diagnosis at Time of Discharge Diagnosis at Time of Discharge Acute Dyspnea. Present on admission. Resolved. Likely due to volume overload from missed dialysis sessions. Asthma with chronic respiratory failure, may have had mild acute exacerbation which is resolved End stage Renal disease with osteodystrophy, on hemo dialysis, History of non compliance with dialysis sessions Diabetes mellitus type 2, insulin using. Procedures XRay, CTs & MRIs X-RAY CHEST ONE VIEW, PORTABLE 12/24/16 IMPRESSION: Bilateral lung interstitial opacities which could represent pulmonary edema secondary to CHF or chronic interstitial lung disease. Please correlate with clinical data. Dictated by: Stephanie Knutson MD, PhD on 12/24/2016 at 19:17 Approved by: Stephanie Knutson MD, PhD on 12/24/2016 at 19:18 Brief History Bao Celestin is a 61 year old female with ESRD on hemodialysis, DM, and asthma who presents to [facility] emergency department complaining of shortness of breath Pt was shopping when she suddenly became short of breath and lightheaded, this episode lasted for 5 minutes and resolved with a few minutes of deep inspiration. Aggravating factors include exertion and lying down. Associated symptoms includes lightheadedness, fatigue and a mild headache. She also reports nonproductive cough (whitish) and wheezing. Denies cold symptoms or sick contacts. Pt states she was recently placed on oxygen at home a few weeks ago. She has a history of Asthma and uses a inhaler at home. She denies fever, chills, cough, nausea, vomiting, chest pain. Patient missed her dialysis on Thursday and today due to her not feeling well Case discussed with Dr Beach, he spoke to the Information Security Associate. Symptoms improved with Solu-Medrol IV and neb treatments. Fortunately her labs did not indicate need for emergent dialysis tonight. Hospital Course Bao Celestin is a 61 year old female with ESRD on hemodialysis, DM, and asthma who presents to [facility] emergency department complaining of shortness of breath 1. Acute Dyspnea. Present on admission, resolved Likely due to volume overload from missed dialysis sessions. Patient states that she missed a couple of rounds of hemodialysis due to upper respiratory illness that she had. Review of records shows patient has Pulmonary Hypertension but no left sided heart failure with normal ejection fraction. Differential diagnosis includes Pulmonary embolism, Unstable Angina. Influenza is less likely with absent of typical symptoms much as muscle aches and fever, coupled with negative Influenza swab - oxygen supplementation (not requiring more than baseline) - had dialysis Feb 3 and 3 liters removed - mildly elevated troponin stable, prob due to CRF - continue Lasix 80 mg po daily as at home 2. Asthma with chronic respiratory failure, may have had mild acute exacerbation , resolved - changed DuoNeb to QID scheduled on Dec 3 and back to usual self on the am of discharge - no steroids given (enriqueta with DM) - no antibiotics indicated 3. End stage Renal disease with osteodystrophy, on hemo dialysis. History of non compliance with dialysis sessions - continuing Renvela - Nephrology consulted & arranged for dialysis - social work consult to identifies issues or barrier to compliance with dialysis 4. Diabetes mellitus type 2, insulin using. - HbA1c ordered but no results available - Lispro medium dose correctional scale - resume outpatient insulin regimen at discharge - Continue home gabapentin - Renal diet 5. Chronic anemia due to chronic disease - no bleeding - continue Procrit as per Nephrology 6. Depression, chronic Presumed stable with no suicidal ideation - continue Citalopram and Trazodone 7. Hypothyroidism, Chronic continue Synthroid 100 mcg daily - Acetaminophen as needed for mild pain/fever/headache - Bowel regimen as needed - Antiemetic as needed Disposition: Home . Pain Evaluation: Adequate Pain Control VTE Prophylaxis: Sub-Q Heparin (Unfractionated) Resuscitation Status: CPR: Attempt Resuscitation Exam Vital Signs (Last) Date Time Temp Pulse Resp B/P Pulse Ox O2 Delivery O2 Flow Rate FiO2 12/27/16 08:03 Supplement Oxygen 12/27/16 05:58 73 12/27/16 05:50 36.7 18 144/66 99 2.00 Test 12/24/16 19:40 12/25/16 02:20 12/25/16 14:45 12/26/16 06:42 Hemoglobin A1c 7.8% (4.8-5.6) Lactic Acid Level 1.3mmol/L (0.4-2.0) Pro-B-Type Natriuretic Peptide 21157jk/mL (0-287) Prealbumin 14mg/dL (20-40) Troponin T 0.060ug/L (0.0-0.011) White Blood Count 2.7th/mm3 (3.8-10.1) Red Blood Count 2.93mil/mm3 (3.90-5.20) Hemoglobin 8.8g/dL (12.0-15.6) Hematocrit 29.9% (35.0-46.0) Mean Corpuscular Volume 102.0fL (81-100) Mean Corpuscular Hemoglobin 30.0pg (27.0-35.0) Mean Corpuscular Hemoglobin Concent 29.4% (32.0-37.0) Red Cell Distribution Width 16.0% (12.3-15.4) Platelet Count 78bil/L (150-400) Neutrophils (%) (Auto) 66.9% (40-74) Lymphocytes (%) (Auto) 24.6% (14-46) Monocytes (%) (Auto) 6.6% (4-12) Eosinophils (%) (Auto) 1.1% (0-5) Basophils (%) (Auto) 0.4% (0-3) Sodium Level 138mEq/L (134-144) Potassium Level 4.2mEq/L (3.5-5.2) Chloride Level 93mEq/L (97-108) Carbon Dioxide Level 26mmol/L (18-29) Blood Urea Nitrogen 40mg/dL (8-27) Creatinine 8.14mg/dL (0.57-1.00) Estimat Glomerular Filtration Rate 7mL/min (>59) Glucose Level 228mg/dL (60-99) Calcium Level 8.1mg/dL (8.5-10.1) Phosphorus Level 6.3mg/dL (2.5-4.9) Magnesium Level 2.3mg/dL (1.6-2.6) Total Bilirubin 0.3mg/dL (0.0-1.2) Aspartate Amino Transf (AST/SGOT) 15U/L (0-50) Alanine Aminotransferase (ALT/SGPT) 7U/L (0-32) Alkaline Phosphatase 86U/L (25-165) Total Protein 6.6g/dL (6.4-8.4) Albumin 3.6g/dL (3.4-5.0) Discharge Medications Discharge Medications Aspirin Chew (Aspirin Chew) 81 Mg Chew 81 MG PO DAILY Prescribed by: SILVIA LANDAVERDE DO Calcium Carbonate (Tums) 500 Mg Tab.chew 2,000 MG PO DAILYWD (Reported) Citalopram (Citalopram) 10 Mg Tablet 10 MG PO HS (Reported) Furosemide (Furosemide) 80 Mg Tab 80 MG PO DAILY Prescribed by: SILVIA LANDAVERDE DO Gabapentin (Gabapentin) 600 Mg Tablet 600 MG PO HS (Reported) Insul NPH Hu Rec/Ins Rg Hu Rec (Novolin 70/30 U100 Insulin Vial) 100 U/1 Ml U 50 UNITS SUBQ BID (Reported) Levothyroxine (Levothyroxine) 100 Mcg Tablet 100 MCG PO DAILY (Reported) [place]-3/Dha/Epa/Fish Oil (Fish Oil 1,000 mg Softgel) 1 Each Capsule 2 EACH PO DAILY (Reported) Trazodone (Trazodone) 100 Mg Tablet 100 MG PO HS (Reported) As needed Acetaminophen (Acetaminophen) 325 Mg Tablet 650 MG PO Q4H PRN PRN For Pain ( Reported) Albuterol HFA (Proair HFA) 8.5 Gm Hfa.aer.ad 2 PUFFS INHALATION Q4H PRN PRN For Shortness of Breath (Reported) Clobetasol Propionate (Clobetasol Propionate) 118 Ml Shampoo 1 APPLIC TP DAILY PRN PRN scalp (Reported) Desonide (Desonide Cream) 15 Gm Cream..g. 1 APPLIC TOP BID PRN PRN psoriasis ( Reported) Nystatin (Nystatin) 20 Applic/15 Gm Oint 1 APPLIC TOPICAL BID PRN PRN rash ( Reported) Ondansetron (Ondansetron) 4 Mg Tablet 4 MG PO q6 PRN PRN For Nausea (Reported) Sennosides (Senna) 8.6 Mg Tablet 8.6 MG PO DAILY PRN PRN For Constipation ( Reported) oxyCODONE-Acetaminophen 7.5-325 mg (oxyCODONE-Acetaminophen 7.5-325 mg) 1 Each Tablet 1 TAB PO BID PRN PRN For Pain (Reported) Followup Plan Follow-up plan Important to keep your dialysis appointments Discharge Diet: Renal Diet Discharge Activity: No restrictions Follow-up with PCP in: 1 week Mira Greene MD Dec 27, 2016 09:03
[2016-12-27 09:19] VITALS: BP 110/47; PULSE 66; RESP 20; O2SAT 98
[2016-12-27] MEDS: Albuterol-Ipratropium 3 mL Inhalation Solution NEB SCH (09:21)
[2016-12-27 09:22] VITALS: PULSE 76; RESP 18; O2SAT 97
[2016-12-27 10:05] VITALS: PULSE 67
--- NOTE | 2016-12-27 12:06 | NUR ---
Discharge Patient discharged home. IV DC'd and intact. Discharge instructions given with no questions. No RX sent with patient. Patient gathered all belongings. PROCESS IMPROVEMENT ENGINEER escorted patient out via W/C.
[2017-01-06] MEDS ORDERED: OMEG-145 PO (18:18)
[2017-01-06] MEDS ORDERED: DIPH25CA6 PO (18:18)
[2017-01-06] MEDS ORDERED: MUPI1OIN6 TP (18:18)
[2017-01-06] MEDS ORDERED: ALBU8.5H2 INHALATION (18:18)
== END 2016-12-27 12:05 | disposition home or self-care (01) | DRG 640 ==
LOC: EDBD 18:05 → SED 18:05 → OSC 21:37
PROVIDERS: ADMIT Hospitalist; ATTEND Hospitalist
PROC: 3E1M39Z Irrigation of Peritoneal Cavity using Dialysate, Percutaneous Approach (ICD-10-PCS; principal; 2016-12-25)
PROC: 3E1M39Z Irrigation of Peritoneal Cavity using Dialysate, Percutaneous Approach (ICD-10-PCS; 2016-12-26)
DX: E87.70 Fluid overload, unspecified (principal); N18.6 End stage renal disease; I13.2 Hypertensive heart and chronic kidney disease with heart failure and with stage 5 chronic kidney disease, or end stage renal disease; J96.10 Chronic respiratory failure, unspecified whether with hypoxia or hypercapnia; F11.20 Opioid dependence, uncomplicated; I50.32 Chronic diastolic (congestive) heart failure; Z91.15 Patient's noncompliance with renal dialysis; E11.21 Type 2 diabetes mellitus with diabetic nephropathy; E11.22 Type 2 diabetes mellitus with diabetic chronic kidney disease; E11.319 Type 2 diabetes mellitus with unspecified diabetic retinopathy without macular edema; Z79.4 Long term (current) use of insulin; Z87.891 Personal history of nicotine dependence; E03.9 Hypothyroidism, unspecified; E78.5 Hyperlipidemia, unspecified; E66.01 Morbid (severe) obesity due to excess calories; Z68.36 Body mass index [BMI] 36.0-36.9, adult; J45.909 Unspecified asthma, uncomplicated; Z99.81 Dependence on supplemental oxygen; Z79.82 Long term (current) use of aspirin; N25.0 Renal osteodystrophy; F32.9 Major depressive disorder, single episode, unspecified

== ENCOUNTER 2017-01-07 05:25 | Day surgery (SDC) | payer MEDICARE, OTHER ==
[2017-01-07] VITALS (13 sets, daily range): BP systolic 105–130; BP diastolic 44–78; PULSE 59–66; RESP 12–16; O2SAT 86–98
[~2017-01-07] VITALS: Ht 177.8 cm; Wt 105.9 kg
[~2017-01-07 05:25] MED LIST changes: -GABA-502 PO; +GABA600T2 PO; +LEVO100T6 PO; +MUPI1OIN6 TP; -MUPI22OI2 NASAL; +OMEG-145 PO; -OMEG500C PO; -VANC750P5 IV
[2017-01-07 10:19] LABS: BASOPHILS % (AUTO) 0.5 % (0-3); EOSINOPHILS % (AUTO) 2.6 % (0-5); MONOCYTES % (AUTO) 7.7 % (4-12); Mean Corpuscular Hemoglobin 29.7 pg (27.0-35.0); NEUTROPHILS % (AUTO) 70.2 % (40-74); Platelet Count 98 bil/L (150-400)
[2017-01-07 10:36] LABS: INR 1.05 ratio
[2017-01-07] MEDS ORDERED: MIDO10TA PO (10:58)
[2017-01-07] MEDS ORDERED: CITA10TA9 PO (10:58)
[2017-01-07] MEDS ORDERED: CeFAZolin 2 Gm/50 mL D5W Duplex Bag IV ONE (11:00)
[2017-01-07] MEDS ORDERED: 0.9% Sodium Chloride 500 ML ONE (11:00)
[2017-01-07] MEDS ORDERED: Heparin 5,000 Units/500 mL NS Premix IV ONE (11:05)
[2017-01-07] MEDS ORDERED: Heparin 1,000 Unit/mL 10 mL Inj ONE (11:09)
--- NOTE | 2017-01-07 11:09 | NUR ---
Admit CLOVER Admitted to [facility] 6 about 929. VSS. States 2/10 pain in left foot which is chronic. States doesn't take anything until it is 5/10. IV started and lab sent. Unable to thread all the way but checked by IVT and stated ok for use. BG 151. SPO2 85-86% at rest. States uses home O2 at 2L and placed with SPO2 97%. After going to bathroom, SPO2 81% with recovery in about 1 minute. States portable O2 too heavy for her to use and frequently does activity without it. Mildly SOB on exertion. See EMR for further info and assessment. Procedure and recovery reviewed and verbalizes understanding. Dr. Worley in to consent and ordered Ancef 2gm to go with pt. To Computer Forensics Analyst around 1100.
[2017-01-07] MEDS ORDERED: fentaNYL-PF 50 mCg/mL 2 mL Inj ONE (11:18)
--- NOTE | 2017-01-07 13:19 | NUR ---
Received Received from lab specialist about 1210. Denies pain. VSS. Left arm elevated on pillow. Pursestring intact without bleeding or hematoma. Taking ice well, prefers to sleep. Easily aroused. Continue to monitor per orders.
--- NOTE | 2017-01-07 14:27 | DRSVH ---
PROCEDURE: ARTERIO VENOUS FISTULOGRAM (PNL) INDICATIONS: ESRD TECHNIQUE: FLUOROSCOPY TIME: 3.4 minutes. Technique: 1. Conscious sedation for 30 minutes. 2. Angioplasty of 3 discrete focal stenotic lesions within the venous outflow the left upper extremit y. 3. Completion fistulogram. 4. Sheath removal hemostasis. The indications, alternatives, benefits, risks, and complications of the procedure were explained to the patient. Informed written consent was obtained and placed in the chart. The patient was brought to the angiography suite, and conscious sedation was administered intravenously by prison s taff, while continuous cardiorespiratory monitoring was performed. Maximum sterile barrier technique was employed per standard protocol, including hand hygiene, cap, ma sk, sterile gown and gloves, and 2% chlorhexidine. One percent lidocaine was used to anesthetize the skin over the area of interest. Using a micropuncture kit, the venous outflow was accessed in an ant egrade fashion. Fistulogram was performed in stations through the micropuncture sheath the level of t he SVC. The micropuncture sheath was exchanged for a short 6 Persian sheath. An 035 wire was advanced into the SVC with the aid of a Kumpe catheter. Balloon angioplasty was performed 43 focal stenoses wi th a 5 mm x 40 mm high-pressure balloon. No central stenosis was present at the peripheral aspect of the central cephalic vein stent, in the mid vein stenosis was present overlying the superior aspect o f the humerus, and the peripheral vein stenosis was present in the aneurysmal portion of the venous o utflow. Completion fistulogram demonstrates resolution of all 3 stenotic lesions. Reflux fistulogram was then performed. The wire was removed, the sheath was removed, and hemostasis a chieved. COMPARISON: [facility], XA, ARTERIO VENOUS FISTULOGRAM (PNL), 08/02/2015, 10:43. FINDINGS: Initial fistulogram demonstrates 3 moderate to high-grade stenoses within the venous outfl ow. One within the peripheral portion of the cephalic stent, one within the midportion of the vein, a nd one within the peripheral portion of the vein in the aneurysmal portion of the venous outflow. Com pletion fistulogram demonstrates resolution of the stenoses. Reflux fistulogram of the arteriovenous anastomosis demonstrates a widely patent AV anastomosis. IMPRESSION: 1. Status post successful angioplasty of 3 focal moderate to high grade stenoses within the venous ou tflow the left upper extremity fistula. Dictated by: Ariella Worley M.D. on 01/07/2017 at 14:11 Approved by: Ariella Worley M.D. on 01/07/2017 at 14:25
--- NOTE | 2017-01-07 17:08 | NUR ---
Recovery VSS. Pursestring removed about 1410 by Mary Kate Decker RN. No bleeding or hematoma. Denies pain. Unable to obtain a ride until early evening and still sleepy until around 1645 when pt. awake and ate lunch. Requested to start getting ready to go. Discharge instructions given, see sheets. Verbalizes understanding. IV discontinued intact. Awaiting ride.
--- NOTE | 2017-01-07 17:44 | NUR ---
Discharge Son arrived. Discharged ambulatory with all belongings in no distress at 1730.
== END 2017-01-07 23:59 | disposition home or self-care (01) ==
LOC: SOUO 05:25 → EDSTATUS 09:00 → SOUO 23:59
PROVIDERS: ATTEND Radiology Vascular & Interventional Radiology
DX: T82.858A Stenosis of other vascular prosthetic devices, implants and grafts, initial encounter (principal); Y83.2 Surgical operation with anastomosis, bypass or graft as the cause of abnormal reaction of the patient, or of later complication, without mention of misadventure at the time of the procedure; I87.1 Compression of vein; N18.6 End stage renal disease
CPT/HCPCS: 36415; 36902; 80048; 85025; 85610; 99152; 99153; C1725; C1769; C1894; J1644; J2250; J3010; Q9967